=== PATIENT | female | born 1990 | race Asian ===

== ENCOUNTER 2016-10-11 16:50 | Inpatient (IN) | payer OTHER ==
[~2016-10-11] VITALS: Ht 154.9 cm; Wt 64.2 kg
[2016-10-11] MEDS ORDERED: SOD CHLORIDE 0.9% 1,000 ML IV STA (17:14)
--- NOTE | 2016-10-11 17:31 | ERA ---
ER Documentation Chief Complaint Date/Time DATE: 10/11/16 TIME: 17:25 Chief Complaint SENT BY PCP - IRREGULAR HEART BEAT; DIZZINESS; SOB HPI 26-year-old woman referred here by PMD for complaints of dizziness and dyspnea on exertion and chest discomfort with exertion 4 days. At rest patient has minimal symptoms. An EKG performed at the facility revealed complete heart block. Patient has no history of abnormal EKG, and no personal history of cardiac problems. Patient denies fevers or chills, no calf or leg swelling, no weight loss, no loss of consciousness, no recent travel, no OCP use, no vomiting or diarrhea. Patient denies any medication or drug use. ROS All systems reviewed and are negative except as per history of present illness. PMhx/Soc None Smoking Status: Never smoker FmHx Family History: No diabetes Physical Exam Vitals Vital Signs Date Time Temp Pulse Resp B/P Pulse Ox O2 Delivery O2 Flow Rate FiO2 10/11/16 19:28 40 16 133/87 100 Room Air 10/11/16 17:46 42 16 145/72 100 Room Air 10/11/16 17:30 Nasal Cannula 3 10/11/16 16:57 98.2 48 19 168/78 95 Physical Exam GENERAL: Well-developed, well-nourished, well-hydrated, in no apparent distress , looks nontoxic in appearance, afebrile HEENT: Moist mucous membranes, pink conjunctiva, no cervical spine tenderness or step-off deformities, no goiter, no jaundice or icterus, extraocular movements intact without pain. No submandibular induration, and no pharyngeal erythema NEURO: Alert and oriented 3, cranial nerves II through XII intact bilaterally, pupils equal round reactive to light, no focal deficits or facial asymmetry, sensation intact distally Strength 5/5 in upper and lower extremities bilaterally CARDIAC: Irregular pulse, no murmurs rubs or gallops, LUNGS: Clear bilaterally no wheezing crackles or stridor ABDOMEN: Soft nontender, no guarding, no rigidity, no rebound, no psoas sign no obturator sign. Normoactive bowel sounds SKIN: Warm and dry to touch, no abrasions, contusions, or hematomas, no lacerations, no ecchymosis, no target lesions, and without ulcers EXTREMITIES: No clubbing cyanosis or edema, calves are bilaterally symmetrical, no Homans sign, no popliteal cord sign. Distal pulses equal and bilateral PSYCH: Normal affect without agitation or irritability Result Diagram: 10/11/16 1720 10/11/16 1720 Results 24 hrs Laboratory Tests Test 10/11/16 17:20 White Blood Count 10.810^3/ul Red Blood Count 4.9210^6/ul Hemoglobin 14.2g/dl Hematocrit 41.5% Mean Corpuscular Volume 84.3fl Mean Corpuscular Hemoglobin 28.9pg Mean Corpuscular Hemoglobin Concent 34.2g/dl Red Cell Distribution Width 12.0% Platelet Count 68909^3/UL Mean Platelet Volume 10.6fl Neutrophils % 78.1% Lymphocytes % 15.7% Monocytes % 5.3% Eosinophils % 0.3% Basophils % 0.3% Nucleated Red Blood Cells % 0.0/100WBC Neutrophils # 8.410^3/ul Lymphocytes # 1.710^3/ul Monocytes # 0.610^3/ul Eosinophils # 0.010^3/ul Basophils # 0.010^3/ul Nucleated Red Blood Cells # 0.010^3/ul Prothrombin Time 13.1Sec Prothrombin Time Ratio 1.0 INR International Normalized Ratio 0.99 Urine Color LT. YELLOW Urine Clarity CLEAR Urine pH 5.5 Urine Specific [place] <=1.005 Urine Ketones 15 Urine Nitrite NEGATIVE Urine Bilirubin NEGATIVE Urine Urobilinogen 0.2 E.U./dL Urine Leukocyte Esterase NEGATIVE Urine Hemoglobin NEGATIVE Urine Glucose NEGATIVE% Urine Total Protein NEGATIVE Sodium Level 144mmol/L Potassium Level 4.0mmol/L Chloride Level 106mmol/L Carbon Dioxide Level 25mmol/L Anion Gap 17 Blood Urea Nitrogen 10mg/dl Creatinine 0.69mg/dl Glucose Level 104mg/dl Calcium Level 9.7mg/dl Total Bilirubin 0.4mg/dl Direct Bilirubin 0.00mg/dl Indirect Bilirubin 0.4mg/dl Aspartate Amino Transf (AST/SGOT) 17IU/L Alanine Aminotransferase (ALT/SGPT) 29IU/L Alkaline Phosphatase 74IU/L Troponin I 0.099ng/ml B-Type Natriuretic Peptide 3120PG/ML Total Protein 8.1g/dl Albumin 5.4g/dl Globulin 2.70g/dl Albumin/Globulin Ratio 2.00 Lipase 75U/L Current Medications Medications (Trade) Dose Ordered Sig/Brian Route PRN Reason Start Time Stop Time Status Last Admin Dose Admin Sodium Chloride (NS) 1,000 ml @ 1,000 mls/hr Q1H STAT IV 10/11/16 17:14 10/11/16 18:13 DC 10/11/16 17:24 IV Flush 10 ml 10 ml STK-MED ONCE .ROUTE 10/11/16 18:45 10/11/16 18:46 DC 10/11/16 19:04 Sodium Chloride (NS) 100 ml @ ud STK-MED ONCE .ROUTE 10/11/16 18:45 10/11/16 18:46 DC Iohexol 150 ml 150 ml STK-MED ONCE .ROUTE 10/11/16 18:45 10/11/16 18:46 DC Iohexol (Omnipaque) 100 ml @ ud STK-MED ONCE .ROUTE 10/11/16 18:45 10/11/16 18:46 DC 10/11/16 19:04 Iohexol (Omnipaque 350mg/ ml) 50 ml STK-MED ONCE .ROUTE 10/11/16 18:45 10/11/16 18:46 DC 10/11/16 19:05 Procedures/MDM IV line was established patient was placed on front desk monitor rhythm strip revealed an irregular rhythm bradycardic at about 30 bpm. Patient was afebrile. EKG performed, read by me revealed third degree atrial ventricular block with a ventricular rate of about 20-30 bpm and an atrial rate of about 120 bpm, normal axis, and a left bundle branch block, there is also prolonged QT. No concerning ST elevations or depressions noted. Chest X-ray 1V Interpreted by me: Soft Tissue: No acute abnormalities Bones: No acute abnormalities Mediastinum/Cardiac Silhouette/Lungs: No acute abnormalities CT angiogram of the chest was negative for pulmonary embolism. Please refer to radiologist dictation for full report. BNP elevated consistent with heart failure, troponin negative, CBC and electrolytes are normal, liver function tests normal. Urinalysis negative for infection. Critical Care: Time: 32 minutes, this was time separate from other procedures. Treatments/Evaluations: Close monitoring and treatment of unstable vital signs, cardiorespiratory, and neurologic status, while maintaining tight balance of fluid, respiratory, and cardiac interventions. Patient is without complaints at this time and is currently connected to defibrillator with pads to the chest and back she will be admitted to telemetry setting for continued medical management cardiology consultation with Dr. Mahoney who I spoke to. Departure Diagnosis: Primary Impression: Third degree atrioventricular block Additional Impressions: Hypertension Qualified Code: I10 - Essential hypertension CHF (congestive heart failure) Qualified Code: I50.21 - Acute systolic congestive heart failure Condition: Serious TRISTIN SAHU MD Oct 11, 2016 17:31
[2016-10-11 17:35] LABS: ADD SCAN DIFF NO
[2016-10-11 17:37] LABS: BASOPHILS % 0.3 % (0.0-2.0); EOSINOPHILS % 0.3 % (0.0-7.0); HEMATOCRIT 41.5 % (37.0-47.0); HEMOGLOBIN 14.2 g/dl (12.0-16.0); LYMPHOCYTES # 1.7 10^3/ul (0.8-2.9); LYMPHOCYTES % 15.7 % (15.0-51.0); MEAN CORPUSCULAR HEMOGLOBIN 28.9 pg (29.0-33.0); MEAN CORPUSCULAR HGB CONC 34.2 g/dl (32.0-37.0); MEAN CORPUSCULAR VOLUME 84.3 fl (82.0-101.0); MEAN PLATELET VOLUME 10.6 fl (7.4-10.4); MONOCYTE # 0.6 10^3/ul (0.3-0.9); MONOCYTES % 5.3 % (0.0-11.0); NEUTROPHIL # 8.4 10^3/ul (1.6-7.5); NEUTROPHILS % 78.1 % (39.0-77.0); PLATELET COUNT 296 10^3/UL (140-415); RED BLOOD COUNT 4.92 10^6/ul (4.20-5.40); WHITE BLOOD COUNT 10.8 10^3/ul (4.8-10.8)
[2016-10-11 17:43] LABS: ADD UMIC NO; URINE BILIRUBIN (Dip) NEGATIVE (NEGATIVE); URINE BLOOD (Dip) NEGATIVE (NEGATIVE); URINE COLOR LT. YELLOW (YELLOW); URINE GLUCOSE (Dip) NEGATIVE (NEGATIVE); URINE KETONES (Dip) 15 (NEGATIVE); URINE LEUKOCYTE ESTERASE (Dip) NEGATIVE (NEGATIVE); URINE NITRITE (Dip) NEGATIVE (NEGATIVE); URINE TOTAL PROTEIN (Dip) NEGATIVE (NEGATIVE); URINE UROBILINOGEN (Dip) 0.2 E.U./dL (0.1-1.0)
--- NOTE | 2016-10-11 17:44 | RADRPT ---
PROCEDURE: Chest x-ray CLINICAL INDICATION: Shortness of breath TECHNIQUE: Chest single view COMPARISON: None FINDINGS: The heart is normal in size. The pulmonary vessels are normal in caliber. The lungs are clear. Th e costophrenic angles are sharp. The visualized bony thorax is unremarkable. IMPRESSION: No acute cardiopulmonary disease. RPTAT: HH .Clayton Bush MD, Date Time Electronically viewed and signed by .Clayton Bush MD, MD on 10/11/2016 17:44 .W/
[2016-10-11 17:59] LABS: INR 0.99; PROTIME 13.1 Sec (12.2-14.2)
[2016-10-11 18:04] LABS: ALBUMIN 5.4 g/dl (3.3-4.9); BILIRUBIN,INDIRECT 0.4 mg/dl (0-1.1); BILIRUBIN,TOTAL 0.4 mg/dl (0.2-1.3); CALCIUM 9.7 mg/dl (8.4-10.2); CREATININE 0.69 mg/dl (0.44-1.00); TOTAL PROTEIN 8.1 g/dl (6.1-8.1)
[2016-10-11 18:14] LABS: TROPONIN-I 0.099 ng/ml (0.00-0.12)
[2016-10-11] MEDS ORDERED: IOHEXOL 350MG/ML 50 ML BTL ONE (18:45)
[2016-10-11] MEDS ORDERED: IOHEXOL 100 ML ONE (18:45)
[2016-10-11] MEDS ORDERED: SOD CHLORIDE 0.9% 100 ML ONE (18:45)
[2016-10-11] MEDS ORDERED: IOHEXOL 300MG/ML 150 ML BTL ONE (18:45)
--- NOTE | 2016-10-11 19:29 | RADRPT ---
PROCEDURE: CTA Chest CLINICAL INDICATION: Chest pain TECHNIQUE: CTA of the chest was performed following the uncomplicated IV administration of 101 cc Omnipaque 350. Coronal and sagittal images were reconstructed from the axial data set. 3-D volumet susan rendered post processing was performed as well. One or more of the following dose reduction león hniques were used: automated exposure control, adjustment of the mA and/or kV according to patient s ize, use of iterative reconstruction technique. CTDI = 8.6 mGy. DLP = 326.95 mGy-cm. COMPARISON: Chest x-ray, 10/11/2016 FINDINGS: No filling defect is present to suggest pulmonary embolism. There is no evidence for pulmonary carol rial hypertension. There is minimal bibasilar atelectasis. No acute infiltrate, pleural effusion, pulmonary edema or p neumothorax is identified. No pulmonary nodule or mass is identified. The central tracheobronchial tree is clear. The heart size is normal without pericardial effusion. There is no thoracic aortic aneurysm or diss ection. No mediastinal, hilar, axillary or supraclavicular lymphadenopathy is identified. Visualized portions of the upper abdomen demonstrate no acute abnormality. The osseous structures a re remarkable for S-shaped scoliosis. No osteolytic or osteoblastic lesion is seen. IMPRESSION: 1. No pulmonary embolism is identified. 2. No mass, lymphadenopathy, or focal acute infiltrate is seen. RPTAT: VV .Aleksandar Nunn MD, MD Date Time Electronically viewed and signed by .Aleksandar Nunn MD, MD on 10/11/2016 19:29 .R/
[2016-10-11] MEDS ORDERED: FUROSEMIDE 40 MG INJ IV ONE (20:00)
[2016-10-11] MEDS: DEXTROSE 5%-0.9% NACL 1,000 ML IV SCH (21:09)
[2016-10-11] MEDS ORDERED: ACETAMINOPHEN 650MG/20.3ML CUP PO PRN (22:00)
[2016-10-11] MEDS ORDERED: morphine 2 MG INJ IV PRN (22:00)
[2016-10-11] MEDS ORDERED: ALBUTEROL/IPRATROPIUM (NEB) 3 ML AMP NEB PRN (22:00)
[2016-10-11] MEDS ORDERED: ONDANSETRON 4 MG INJ IV PRN (22:00)
[2016-10-11 22:38] VITALS: BP 133/79; PULSE 42; RESP 16
[2016-10-11 23:00] VITALS: BP 115/68; PULSE 41; RESP 15
[2016-10-11 23:38] VITALS: BP 133/79; PULSE 42; RESP 16
[2016-10-11 23:58] VITALS: Ht 154.9 cm; Wt 64.2 kg
[2016-10-12] VITALS (35 sets, daily range): BP systolic 102–139; BP diastolic 46–80; PULSE 35–90; RESP 9–25
--- NOTE | 2016-10-12 04:58 | HP ---
DATE OF ADMISSION: 10/11/2016 CHIEF COMPLAINT: Shortness of breath and dizziness. HISTORY OF PRESENT ILLNESS: This is a 26-year-old female with a remote history of dyslipidemia who was sent by PCP for shortness of breath and dizziness. The symptoms have been progressively getting worse for the past 4 days or so. On further questioning, the patient also reported vague chest dis comfort and palpitation-like symptoms. EKG done at the clinic showed complete heart block. She den ied loss of consciousness, headache, visual disturbance, fever, chills, nausea, vomiting, abdominal pain, or urinary symptoms. When the patient presented to the ER, blood pressure was 168/78, heart rate 48, respiratory rate 19, temperature 98.2, oxygen saturation 95% on room air. ski maker strip in the ER showed bradyc ardia with a rate of about 30. EKG showed complete heart block. Dr. Mahoney, the on-call cardiologi st, was notified by the ER staff. Chest x-ray showed clear lungs. CT pulmonary angiogram showed no pulmonary embolism, mass, lymphadenopathy, or focal infiltrate. The patient was given 40 mg IV Las ix and 1 liter of normal saline and currently is admitted to the ICU. REVIEW OF SYSTEMS: A 12-point review is performed and is negative except as mentioned in HPI. PAST MEDICAL HISTORY: As per HPI. PAST SURGICAL HISTORY: She had some type of a cyst removed from her neck. SOCIAL HISTORY: Denied a history of tobacco or illicit drug use. She drinks alcohol occasionally. ALLERGIES: SULFA. HOME MEDICATIONS: None. PHYSICAL EXAMINATION: VITAL SIGNS: Blood pressure 133/79, heart rate 42, respiratory rate 16, temperature 98, oxygen satu ration 100% on room air. GENERAL: No acute distress. Able to speak in full sentences, alert and oriented. HEENT: No obvious head deformity. Pupils are reactive to light. Extraocular muscles intact. No s cleral icterus. CARDIOVASCULAR: Bradycardic. LUNGS: Clear. ABDOMEN: Soft, nontender, nondistended. Positive bowel sounds. EXTREMITIES: No edema. NEUROLOGIC: No focal deficits. LABORATORY: CBC and CMP are within acceptable range. BNP is 3100. First troponin is negative. TS H and free T4 are within normal limits. IMAGING: CT pulmonary angiogram and chest x-ray with no acute findings and no pulmonary embolism. IMPRESSION: A 26-year-old female with no significant past medical history who was found with comple te heart block. PLAN: Continue ICU monitoring. External pacer pads are in place. Dr. Mahoney, the shot examiner, is aware of patient's admission and will follow up on recommendation regarding pacemaker placement. I n the meantime, we will continue to monitor here in the ICU. Further workup will be per clinical course. Total critical time spent is about 40 minutes shock. Dictated By: LUIS FERNANDO WINSLOW/NTS Conf#: [id number] DID#: [id number]
[2016-10-12] MEDS: DEXTROSE 5%-0.9% NACL 1,000 ML IV SCH ×3 (05:57→14:42)
[2016-10-12 06:05] LABS: BASOPHILS % 0.3 % (0.0-2.0); EOSINOPHILS # 0.1 10^3/ul (0.0-0.5); HEMATOCRIT 38.8 % (37.0-47.0); LYMPHOCYTES # 2.4 10^3/ul (0.8-2.9); LYMPHOCYTES % 26.2 % (15.0-51.0); MEAN CORPUSCULAR HEMOGLOBIN 28.3 pg (29.0-33.0); MEAN CORPUSCULAR HGB CONC 33.5 g/dl (32.0-37.0); MEAN CORPUSCULAR VOLUME 84.3 fl (82.0-101.0); MEAN PLATELET VOLUME 10.8 fl (7.4-10.4); MONOCYTE # 0.7 10^3/ul (0.3-0.9); MONOCYTES % 7.9 % (0.0-11.0); NEUTROPHIL # 5.8 10^3/ul (1.6-7.5); NEUTROPHILS % 64.3 % (39.0-77.0); PLATELET COUNT 255 10^3/UL (140-415); RED CELL DISTRIBUTION WIDTH 12.3 % (11.5-14.5)
[2016-10-12 06:06] LABS: ADD SCAN DIFF NO
[2016-10-12 06:39] LABS: ALBUMIN 4.6 g/dl (3.3-4.9); ALBUMIN/GLOBULIN RATIO 1.91; BILIRUBIN,INDIRECT 0.4 mg/dl (0-1.1); BILIRUBIN,TOTAL 0.4 mg/dl (0.2-1.3); CALCIUM 8.8 mg/dl (8.4-10.2); CREATININE 0.66 mg/dl (0.44-1.00); POTASSIUM 3.4 mmol/L (3.5-5.1)
--- NOTE | 2016-10-12 07:05 | CONS ---
DATE OF ADMISSION: 10/11/2016 DATE OF CONSULTATION: 10/11/2016 TYPE OF CONSULTATION: Cardiology. REASON FOR CONSULTATION: Complete heart block. CHIEF COMPLAINT: Weakness, shortness of breath. HISTORY OF PRESENT ILLNESS: History was obtained from the patient, discussion with her boyfriend, viktoria rodriguez with Dr. Sahu. This is a very pleasant 26-year-old female with no past cardiac histo ry who came to the emergency room with 2 to 3 days of dizziness, weakness, dyspnea on exertion. The patient was seen in the clinic, was noted to have severe bradycardia and complete heart block. Her e also has been severely bradycardic with complete heart block. Denies any chest pain to me. Denie s any palpitation to me. She gets lightheaded and dizzy and feels like she is going to pass out wit h limited activity. While at rest, she feels okay. EKG has shown complete AV block with complete A V dissociation. PAST MEDICAL HISTORY: None. SOCIAL HISTORY: Does not smoke or drink. ALLERGIES: NO REPORTED ALLERGIES. FAMILY HISTORY: No reported coronary artery disease. MEDICATIONS AT HOME: None. REVIEW OF SYSTEMS: As above mentioned. PHYSICAL EXAMINATION: VITAL SIGNS: Temperature 98, heart rate of 40, blood pressure 130/87, saturating 100%. HEENT: Normocephalic, atraumatic. CARDIOVASCULAR: Bradycardia. PULMONARY: No wheeze or rhonchi. GASTROINTESTINAL: Soft, nontender. EXTREMITIES: No significant lower extremity edema. NEUROLOGIC: Awake and alert. PSYCHIATRIC: Appeared to be calm and pleasant. LABORATORY: Sodium 144, potassium 4, BUN of 10, creatinine 0.69, glucose of 104. Troponin 0.099. ALT 29. Albumin is 5.4. WBC of 10.8, hemoglobin 14.2, platelets of 296. EKG was personally reviewed, showed normal sinus rhythm with complete AV dissociation ____ third-deg ree heart block ____ conduction delay, ventricular escape rhythms. CT pulmonary angiogram shows no evidence of pulmonary embolus, no mass lymphedema. BNP was elevated at 3120. ASSESSMENT AND PLAN: 1. Complete heart block. 2. Symptomatic bradycardia and dyspnea secondary to above. 3. Elevated BNP. 4. Abnormal electrocardiogram secondary to above. RECOMMENDATIONS: Will check the thyroid function tests. The patient to be admitted to intensive ca re unit for close monitoring overnight. Echocardiogram will be ordered to be done as soon as possib le. Unless a significant reversible cause is found, the patient will need to have a permanent pacem nati placed in. Risks and alternatives of permanent pacemaker discussed with the patient in detail. ____ infection, vascular complication, ____ infection, pneumothorax, hemothorax, anesthesia-relate d complications, etc., discussed with the patient in detail. The patient has consented to procedure . Dictated By: LANG PRASAD MD AV/NTS Conf#: [id number] DID#: [id number] CC: TRISTIN SAHU MD;*End*
[2016-10-12] MEDS ORDERED: POTASSIUM CHLORIDE (SR) 20 MEQ TAB PO STA (08:44)
[2016-10-12] MEDS ORDERED: HEPARIN 5,000 UNIT/0.5 ML VIAL SC SCH (09:00)
[2016-10-12 09:44] LABS: CHOL/HDL RATIO 5.1 RATIO
--- NOTE | 2016-10-12 10:12 | RADRPT ---
Echocardiogram Report Patient Name: PIOTR WELLS Gender: Female Date: 1990 Study Date: 12-Oct-2016 Qual Research Manager: Dax Fisher RDCS Location: [facility] Ref. Physician: LANG MAHONEY Quality: Good Procedures: Transthoracic echocardiogram with complete 2D, M-Mode, and doppler examination. Indications: heart block. 2D/M Mode Doppler Measurement Value Normal Ranges Measurement Value Normal Ranges LVIDd 2D 4.0 3.5 - 5.6 cm VERNON Vmax 2.2 cm2 LVIDs 2D 1.8 2.1 - 4.1 cm VERNON VTI 2.5 cm2 FS 2D 56.5 % AV Mean Vinicio 1.4 m/sec LVPWd 2D 0.6 0.6 - 1.1 cm AV Mean PG 8.0 mmHg IVSd 2D 0.7 0.6 - 1.1 cm AV Peak Vinicio 2.1 m/sec IVS/LVPW 2D 1.0 AV Peak PG 18.0 mmHg AoR Diam 2D 2.1 2.0 - 3.7 cm AV VTI 40.0 cm LA/Ao 2D 1 0 - 1 LVOT Mean Vinicio 1.3 m/sec EDV 2D 65.0 cm3 LVOT Mean PG 8.0 mmHg ESV 2D 5.4 cm3 LVOT Peak Vinicio 1.9 m/sec LA Dimen 2D 2.8 2.3 - 4.0 cm LVOT Peak PG 14.0 mmHg LVOT Diam 1.8 cm LVOT VTI 39.2 cm LVOT Area 2.5 cm2 TR Peak Vinicio 2.2 m/sec TR Peak PG 19.0 mmHg RVSP 22.0 mmHg Findings Left Ventricle: Normal left ventricular systolic function. Normal left ventricular cavity size. Normal left ventricular wall thickness. Ejection fraction is visually estimated at 60 %. Right Ventricle: Normal right ventricular size. Normal right ventricular systolic function. Left Atrium: The left atrium is normal in size. Right Atrium: The right atrium is normal in size. Mitral Valve: Normal appearance of the mitral valve. There is trace to mild mitral valve regurgitation. Aortic Valve: Aortic valve Max velocity 2.13 m/sec. Max PG 18.00 mmHg. Mean PG 8.00 mmHg. Aortic sclerosis without stenosis. No aortic regurgitation. Tricuspid Valve: Normal appearance of the tricuspid valve. Estimated peak PA systolic pressure 22 mmHg. There is trace tricuspid regurgitation. Pulmonic Valve: Normal pulmonic valve appearance. Pericardium: Normal pericardium with no significant pericardial effusion. Aorta: Normal aortic root. IVC: Normal size and normal respiratory collapse consistent with normal right atrial pressure. Conclusions 1.Normal left ventricular systolic function. Normal left ventricular cavity size. Normal left ventricular wall thickness. Ejection fraction is visually estimated at 60 %. 2.The left atrium is normal in size. 3.Normal appearance of the mitral valve. There is trace to mild mitral valve regurgitation. 4.Aortic valve Max velocity 2.13 m/sec. Max PG 18.00 mmHg. Mean PG 8.00 mmHg. Aortic sclerosis without stenosis. No aortic regurgitation. 5.Normal appearance of the tricuspid valve. Estimated peak PA systolic pressure 22 mmHg. There is trace tricuspid regurgitation. 6.Normal size and normal respiratory collapse consistent with normal right atrial pressure. Electronically Signed By: Lang Mahoney 12-Oct-2016 10:11:56 -0700 Patient Name: PIOTR WELLS Study Date: 12-Oct-[id number]
[2016-10-12] MEDS: FAMOTIDINE 20 MG TAB PO SCH (10:14)
--- NOTE | 2016-10-12 11:51 | PN ---
DATE: 10/12/2016 CARDIOLOGY FOLLOWUP SUBJECTIVE: Discussed with the staff. Rhythm strip was reviewed. Discussed with the patient's fat her. Discussed with the patient's mother. Discussed with the patient's boyfriend. The patient rem ained in complete heart block, still heart rate as low as 30s. No syncope, no presyncope, no long p auses noted. She is doing fine at rest. Denies any chest pain or pressure to me. MEDICATIONS: Reviewed. PHYSICAL EXAMINATION: VITAL SIGNS: Temperature 98.1, heart rate of 36, blood pressure 125/61, respiratory rate 12, satura ting 98%. GENERAL: No acute distress. HEENT: Normocephalic, atraumatic. Eyes: Pupils are equal. CARDIOVASCULAR: Bradycardia. PULMONARY: With no wheezes or rhonchi. GASTROINTESTINAL: Soft, nontender. EXTREMITIES: No significant edema. NEUROLOGIC: Awake and alert. PSYCHIATRIC: Appears to be calm and pleasant. LABORATORY: WBC of 9, hemoglobin 13, platelets of 255. Sodium 143, potassium 3.4, BUN of 8, creati nine 0.68, glucose 107, cholesterol is 179, LDL of 109, HDL 35. TSH is within normal limits. Serum hCG was negative. Echocardiogram was also personally reviewed which shows normal ejection fraction of about 60%. ASSESSMENT AND PLAN: 1. Severely symptomatic complete heart block. 2. Symptomatic bradycardia with dyspnea. 3. Elevated BNP secondary to above. 4. Abnormal EKG due to above. 5. Mild hypokalemia. RECOMMENDATIONS: We will continue with ICU care for now. Awaiting the laborer tanbark to be available for permanent pacemaker placement. Discussed with the patient and multiple family members, consent has been obtained. Continue with the ICU care for now until the pacemaker is placed. More than 35 minutes of critical care time was spent managing this patient excluding any procedures. Dictated By: LANG PRASAD MD AV/NTS Conf#: [id number] DID#: [id number] CC: LUIS FERNANDO WILKINS MD;*EndCC*
[2016-10-12] MEDS ORDERED: LIDOCAINE 1%/EPI 30 ML INJ ONE (11:58)
[2016-10-12] MEDS ORDERED: POLYMYXIN/BACITRACIN 1L IRRIG IRR ONE (12:30)
[2016-10-12] MEDS ORDERED: FENTAnyl 50 MCG/ML VIAL ONE (12:34)
[2016-10-12] MEDS ORDERED: PROPOFOL 100 ML ONE (12:34)
[2016-10-12] MEDS ORDERED: MIDAZOLAM 1 MG/ML 2 ML INJ ONE (12:34)
[2016-10-12] MEDS ORDERED: morphine 2 MG INJ IV PRN ×2 (14:00)
[2016-10-12] MEDS ORDERED: ACETAMINOPHEN 325 MG TAB PO PRN (14:00)
--- NOTE | 2016-10-12 14:25 | SP ---
DATE OF PROCEDURE: 10/12/2016 PROCEDURE: 1. Left subclavian venogram with radiological interpretation. 2. Implantation of dual-chamber permanent pacemaker with both RV and RA leads. 3. Intracardiac electrocardiogram. SURGEON: Lang Mahoney MD CLINICAL INDICATIONS: A 26-year-old female patient who presented with severe symptomatic complete h eart block. DESCRIPTION OF PROCEDURE: Written informed consent was obtained after risks and benefits were discu ssed with the patient and multiple family members in detail. The patient was brought to the cath la b, placed in the supine position. The patient underwent anesthesia by the anesthesiologist. Left c hest area was prepped and draped in a sterile fashion. Left subclavian venogram was performed. The patient has patent subclavian vein and cephalic vein. The left AC groove was anesthetized with 1% lidocaine with epinephrine. A 3 cm incision was made in the AC groove. Blunt dissection was milad d out. Cephalic vein was identified and isolated. It was cannulated using and an 0.014 wire was ad vanced through it into the inferior vena cava. Then, using modified Seldinger technique, an 8-Frenc h sheath was placed in the cephalic vein into the subclavian vein. I placed 2 wires into it and rem massimo it and placed another sheath over one of the wires in the cephalic vein. Right ventricular leo d was placed and advanced under direct fluoroscopy into right ventricular apex. Once a good positio n was found, it was screwed into place. Then, the sheath was peeled away and a second sheath was pl aced over the second wire into the cephalic vein. Right atrial lead was placed into the right atria l appendage. I had difficulty placing it, placed in multiple areas to find a good position. Once a good position was obtained, threshold was checked, which showed excellent threshold and diaphragmat ic stimulation at 10 volts and good pattern. Sheath was peeled away. Both leads were tied do wn with 0 Ethibond. The pocket was irrigated with antibiotic solution. The leads were connected to the device. Again, thresholds were checked. The device was placed into the pocket. The pocket wa s closed after antibiotic solution was irrigated. The pocket was closed in 1 layer of 2-0 Vicryl a nd 2 layers of 3-0 Vicryl. Steri-Strips and pressure applied. The patient tolerated the procedure with no complication. DEVICE INFORMATION: The device itself is a [employer] MRI pacemaker which is an MRI compatib le pacemaker. Right atrial lead is a Tendril MRI lead. Right ventricular lead is a Tendril MRI leo d. P-wave amplitude was 2.2, threshold 1.25 at 0.4 milliseconds pulse width, impedance of 390. R-w ave could not be captured because the patient is dependent. Threshold is 1 at 0.4 milliseconds, imp edance 890. Device was set at lower rate of 60, upper rate of 130. CONCLUSION: Successful implantation of dual-chamber permanent pacemaker. Dictated By: LANG MAHONEY MD AV/YOLANDE Conf#: [id number] DID#: [id number] CC: LUIS FERNANDO WILKINS MD;*End*
[2016-10-12] MEDS: CEFAZOLIN 1 GM/50 ML (PMX) 50 ML IVPB SCH ×2 (14:42→21:36)
--- NOTE | 2016-10-12 14:45 | RADRPT ---
PROCEDURE: XR Chest AP portable CLINICAL INDICATION: Status post device insertion TECHNIQUE: An AP portable radiograph of the chest was submitted. COMPARISON: 10/11/2016 FINDINGS: Support Hardware: None Cardiovascular: Since the previous study, a pacemaker has been implanted within the left upper chest wall and dual leads appear to be satisfactory position. The heart size is normal and the per point vasculature appears unremarkable. Lung Pringle: The lung pringle appear clear with no nodule, alveolar infiltrate, or interstitial promi nence evident. Pleural Spaces: No pneumothorax or pleural effusion is identified. Osseous Structures: There is a persistent moderate dextroscoliotic curve to the thoracic spine. Soft Tissues: The soft tissues appear unremarkable. IMPRESSION: 1. Interval insertion of a permanent pacemaker and dual leads which appears satisfactory position. 2. The cardiovascular silhouette is stable unremarkable. 3. The lung pringle and pleural spaces remain clear. 4. Persistent moderate dextroscoliotic curve to the thoracic spine. Physician Jorge Date Time Electronically viewed and signed by Physician Jorge on 10/12/2016 14:45 /
--- NOTE | 2016-10-12 17:10 | PN ---
DATE: 10/12/2016 SUBJECTIVE: No acute events overnight. Seen by cardiology team. Denies chest pain. OBJECTIVE: VITAL SIGNS: Heart rate is 35 to 42. Most of the vital signs are stable. GENERAL: The patient is lying in bed, answering questions appropriately. No acute distress. HEENT: Pupils equal, round, reactive to light. Extraocular muscles intact. NECK: Supple, no thyromegaly. LUNGS: Clear to auscultation bilaterally. CARDIOVASCULAR: S1, S2 heard. No rubs or gallops. ABDOMEN: Soft, nontender, nondistended. Normal bowel sounds. No rebound or guarding. MUSCULOSKELETAL: No lower extremity edema bilaterally. NEUROLOGIC: No focal deficits. LABORATORIES: The CBC is normal. The comprehensive metabolic panel is normal except the potassium is 3.4. The BNP yesterday was 3120. UA is negative nitrites, negative leukocyte esterase. ASSESSMENT AND PLAN: This is a 26-year-old female with history of high cholesterol sent in by PCP f or shortness of breath and dizziness, found with third degree heart block. 1. Shortness of breath, dizziness, again secondary to third-degree heart block. Again, continue he re in the ICU. Follow up cardiology recommendations. The patient is pending results of the echocar diogram per cardiology, unless there is a reversible cause found for the patient's complete heart bl ock, the patient will need to have a permanent pacemaker placed. Follow up the final recommendation s of the cardiology team. Check TSH, A1c, and lipid panel. 2. High cholesterol. Check lipid panel. 3. Gastrointestinal prophylaxis. Add Pepcid. 4. Deep venous thrombosis prophylaxis, heparin subcutaneous. Critical care time spent on patient care today, 40 minutes. Dictated By: JACQUELINE CONWAY Conf#: [id number] DID#: [id number]
[2016-10-13] VITALS (8 sets, daily range): BP systolic 105–122; BP diastolic 56–74; PULSE 68–84; RESP 18–20
[2016-10-13] MEDS: CEFAZOLIN 1 GM/50 ML (PMX) 50 ML IVPB SCH (05:35)
[2016-10-13] MEDS: FAMOTIDINE 20 MG TAB PO SCH (08:46)
--- NOTE | 2016-10-13 08:58 | PN ---
DATE: 10/13/2016 CARDIOLOGY FOLLOWUP SUBJECTIVE: Discussed with the staff. Rhythm strip was reviewed. The patient remains in ventricul ar paced rhythm. No chest pain or pressure. No palpitations. He has minimal discomfort, on the pa cemaker. No bleeding, hematoma noted. MEDICATIONS: Reviewed. PHYSICAL EXAMINATION: VITAL SIGNS: Temperature 98, heart rate of 68, blood pressure 122/70, respiration rate 18, saturati ng 93%. HEENT: Normocephalic, atraumatic. No acute distress. EYES: Pupils are equal. CHEST: Status post pacemaker in place with no active bleeding, no hematoma. GASTROINTESTINAL: Soft, nontender. PULMONARY: With no wheezes or rhonchi. EXTREMITIES: No significant lower extremity edema. NEUROLOGIC: Awake and alert x3. PSYCHIATRIC: Calm and very pleasant. DERMATOLOGIC: There is no active bleeding sites. LABORATORY: Chest x-ray was personally reviewed. Status post pacemaker with no evidence of pneumot horax. Pacemaker was interrogated, which showed normal function of the pacemaker with both RV and R A lead. RV is dependent. ASSESSMENT AND PLAN: 1. Complete heart block. 2. Status post permanent pacemaker. 3. Rheumatic bradycardia, heart block. troponins with elevated BNP secondary to above. 4. Electrolyte abnormality has been corrected. RECOMMENDATIONS: Patient's pacemaker was interrogated normal function is noted. The patient can be discharged from the cardiac standpoint. Instructions have been given to the patient. Patient has been advised to follow up with me next week for pacemaker check and wound check. Dictated By: LANG ALVAREZ/YOLANDE Conf#: [id number] DID#: [id number] CC: JACQUELINE KNOX;*EndCC*
[2016-10-13 09:48] LABS: ADD SCAN DIFF NO
[2016-10-13 09:51] LABS: BASOPHILS % 0.3 % (0.0-2.0); EOSINOPHILS # 0.1 10^3/ul (0.0-0.5); EOSINOPHILS % 1.2 % (0.0-7.0); HEMATOCRIT 39.3 % (37.0-47.0); HEMOGLOBIN 13.2 g/dl (12.0-16.0); LYMPHOCYTES # 1.4 10^3/ul (0.8-2.9); LYMPHOCYTES % 15.4 % (15.0-51.0); MEAN CORPUSCULAR HEMOGLOBIN 28.4 pg (29.0-33.0); MEAN CORPUSCULAR HGB CONC 33.6 g/dl (32.0-37.0); MEAN CORPUSCULAR VOLUME 84.5 fl (82.0-101.0); MEAN PLATELET VOLUME 10.6 fl (7.4-10.4); MONOCYTE # 0.5 10^3/ul (0.3-0.9); MONOCYTES % 5.5 % (0.0-11.0); NEUTROPHIL # 6.9 10^3/ul (1.6-7.5); NEUTROPHILS % 77.4 % (39.0-77.0); PLATELET COUNT 217 10^3/UL (140-415); RED BLOOD COUNT 4.65 10^6/ul (4.20-5.40); WHITE BLOOD COUNT 8.9 10^3/ul (4.8-10.8)
[2016-10-13 10:08] LABS: CALCIUM 9.3 mg/dl (8.4-10.2); CREATININE 0.59 mg/dl (0.44-1.00); POTASSIUM 4.1 mmol/L (3.5-5.1)
[2016-10-13 10:09] LABS: MAGNESIUM 1.8 mg/dl (1.7-2.5); PHOSPHORUS 3.3 mg/dl (2.5-4.9)
--- NOTE | 2016-10-13 16:57 | DS ---
Date/Time of Note Date/Time of Note DATE: 10/13/16 TIME: 16:52 Discharge Summary Admission/Discharge Info Admit Date/Time Oct 11, 2016 at 19:50 Discharge Date/Time Final Diagnosis 1. Complete AV conduction block, s/p pacemaker, stable, follow up with Dr. Mahoney Patient Condition: Stable Hospital Course This is a 26-year-old female with a remote history of dyslipidemia who was sent by PCP for shortness of breath and dizziness. The symptoms have been progressively getting worse for the past 4 days or so. On further questioning, the patient also reported vague chest discomfort and palpitation-like symptoms. EKG done at the clinic showed complete heart block. She denied loss of consciousness, headache, visual disturbance, fever, chills, nausea, vomiting, abdominal pain, or urinary symptoms. When the patient presented to the ER, blood pressure was 168/78, heart rate 48, respiratory rate 19, temperature 98.2, oxygen saturation 95% on room air. alarm security or surveillance monitor strip in the ER showed bradycardia with a rate of about 30. EKG showed complete heart block. Patient got pacemaker implanted on 10/12/2016. Patient has been on sinus rhythm with ventricular pacing. Symptoms totally resolved. Patient will follow up with Dr. Mahoney in office. Home Meds No Active Prescriptions or Reported Meds Follow-up Plan Dr. Mahoney in one week PCP in one week Primary Care Provider Care Physician No Primary Pending Labs Laboratory Tests Test 10/13/16 09:35 White Blood Count 8.910^3/ul (4.8-10.8) Red Blood Count 4.6510^6/ul (4.20-5.40) Hemoglobin 13.2g/dl (12.0-16.0) Hematocrit 39.3% (37.0-47.0) Mean Corpuscular Volume 84.5fl (82.0-101.0) Mean Corpuscular Hemoglobin 28.4pg (29.0-33.0) Mean Corpuscular Hemoglobin Concent 33.6g/dl (32.0-37.0) Red Cell Distribution Width 12.0% (11.5-14.5) Platelet Count 44492^3/UL (140-415) Mean Platelet Volume 10.6fl (7.4-10.4) Neutrophils % 77.4% (39.0-77.0) Lymphocytes % 15.4% (15.0-51.0) Monocytes % 5.5% (0.0-11.0) Eosinophils % 1.2% (0.0-7.0) Basophils % 0.3% (0.0-2.0) Nucleated Red Blood Cells % 0.0/100WBC (0.0-0.0) Neutrophils # 6.910^3/ul (1.6-7.5) Lymphocytes # 1.410^3/ul (0.8-2.9) Monocytes # 0.510^3/ul (0.3-0.9) Eosinophils # 0.110^3/ul (0.0-0.5) Basophils # 0.010^3/ul (0.0-0.1) Nucleated Red Blood Cells # 0.010^3/ul (0.0-0.0) Sodium Level 140mmol/L (135-144) Potassium Level 4.1mmol/L (3.5-5.1) Chloride Level 106mmol/L (97-110) Carbon Dioxide Level 24mmol/L (21-31) Anion Gap 14 (8-16) Blood Urea Nitrogen 8mg/dl (7-20) Creatinine 0.59mg/dl (0.44-1.00) Glucose Level 136mg/dl (70-220) Calcium Level 9.3mg/dl (8.4-10.2) Phosphorus Level 3.3mg/dl (2.5-4.9) Magnesium Level 1.8mg/dl (1.7-2.5) NEHA WINTERS MD Oct 13, 2016 16:57
--- NOTE | 2016-10-13 17:51 | RADRPT ---
Vent Rate: 62 bpm RR Interval: 0 msec [place] Interval: 196 msec QRS Duration: 154 msec QT Interval: 494 msec QTC Interval: 501 msec P-R-T [place]: 56 - -80 - 73 degrees AV sequential or dual chamber electronic pacemaker Electronically Signed By: Brody Mazariegos [id number]
--- NOTE | 2016-10-13 17:51 | RADRPT ---
Vent Rate: 81 bpm RR Interval: 0 msec [place] Interval: 166 msec QRS Duration: 134 msec QT Interval: 492 msec QTC Interval: 571 msec P-R-T [place]: 53 - -85 - 69 degrees Electronic ventricular pacemaker Electronically Signed By: Brody Mazariegos [id number]
== END 2016-10-13 18:39 | disposition home or self-care (01) | DRG 242 ==
LOC: E/R 16:50 → ICU 19:50 → MS4 10-12 23:44
PROVIDERS: ADMIT Internal Medicine; ATTEND Internal Medicine
PROC: 02HK3JZ Insertion of Pacemaker Lead into Right Ventricle, Percutaneous Approach (ICD-10-PCS; 2016-10-12)
PROC: 0JH606Z Insertion of Pacemaker, Dual Chamber into Chest Subcutaneous Tissue and Fascia, Open Approach (ICD-10-PCS; principal; 2016-10-12 10:00)
PROC: 02H63JZ Insertion of Pacemaker Lead into Right Atrium, Percutaneous Approach (ICD-10-PCS; 2016-10-12 10:00)
DX: I44.2 Atrioventricular block, complete (principal); I50.21 Acute systolic (congestive) heart failure; I11.0 Hypertensive heart disease with heart failure; R00.1 Bradycardia, unspecified; E87.6 Hypokalemia; E78.00 Pure hypercholesterolemia, unspecified; J45.909 Unspecified asthma, uncomplicated
CPT/HCPCS: 36415; 71010; 71275; 75820; 80048; 80053; 80061; 81003; 83036; 83690; 83735; 83880; 84100; 84439; 84443; 84484; 84703; 85025; 85610; 87081; 93005; 93306; 96361; 96374; J0690; J1940; J2250; J3010; J7030; J7042; Q9967